=== PATIENT | male | born 1975 | race Two or more races ===

== ENCOUNTER 2016-06-21 22:29 | Emergency (ER) | payer BC, OTHER ==
--- NOTE | ~2016-06-21 | ER ---
PATIENT'S NAME: MELCHOR CRUZ [facility] AGE: 41 Y [address] ROOM: [place] [address] LOCATION: [facility] ADMIT DATE: 06/21/2016 ER/Outpatient Report DISCHARGE DATE: 06/22/2016 FAMILY PHYSICIAN: Physician, Unknown ATTENDING PHYSICIAN: John Blount Time of Arrival: Admission date and time documented on the medical record. Time of Evaluation: I saw the patient at 2250 hours. CHIEF COMPLAINT: Rash, left forearm. HISTORY OF PRESENT ILLNESS: This patient is a 41-year-old male, who comes in with a rash on his left forearm over the past 2 days. It is painful and pruritic. Denies any fever, chills, or sweats. No other complaints. The patient does have a history of HIV, tuberculosis, and depression. Apparently, had an anal fissure that ruptured several weeks ago. HOME MEDICATIONS: See attached medication list. ALLERGIES: CHLORAMPHENICOL. SOCIAL HISTORY: The patient smokes about 5 cigarettes a day. Occasional intake of alcohol. SIGNIFICANT PAST MEDICAL HISTORY: HIV since 2012; tobacco abuse; tuberculosis, questionable active versus nonactive; depression; herpes zoster; and anal fissure. OPERATIONS: None. REVIEW OF SYSTEMS: All systems reviewed by me are negative with the exception of those discussed in the history of present illness. PHYSICAL EXAMINATION: VITAL SIGNS: Temperature 97.9, pulse 67, respiratory rate 14, blood pressure 120/83, and O2 saturation on room air is 96%. HEAD: Normocephalic. EYES: Clear. EARS: Clear TMs bilaterally. PATIENT'S NAME: MELCHOR CRUZ [facility] AGE: 41 Y [address] ROOM: [place] [address] LOCATION: [facility] ADMIT DATE: 06/21/2016 ER/Outpatient Report DISCHARGE DATE: 06/22/2016 FAMILY PHYSICIAN: Physician, Unknown ATTENDING PHYSICIAN: John Blount NOSE AND THROAT: Clear. Mucous membranes moist. NECK: Negative. SPINE: Negative. LUNGS: Clear. No rales, rhonchi, or wheezes. HEART: Regular. Pulses are palpable. ABDOMEN: Soft, nontender. Good bowel tones. EXTREMITIES: No peripheral edema, cyanosis, or deformity. NEURO: Intact. SKIN: The patient has elevated rash approximately 4-5 x 2-3 cm, ventral aspect, mid left forearm. Some excoriated central lesions. No vesicles present. Slightly raised, slightly erythematous. LABORATORY DATA: White count is 8400, 54 segs, 35 lymphs, 8 monos, 3 eos, 1 baso; hemoglobin is 15.1 with hematocrit 42.8; platelet count is 228,000. Sedimentation rate was 4. Procalcitonin was 0.05. Lactate 1.8. CMS was normal except for a slightly low potassium at 3.5, low CO2 content of 21, CRP was normal at less than 0.29. IMPRESSION: 1. Rash, mid left forearm. Etiology undetermined. Most likely some type of viral exanthem, possibly herpetic. 2. Human immunodeficiency virus positive. 3. Tuberculosis, active versus nonactive. 4. Depression. PLAN: The patient was dismissed from the emergency department to observation. Activity as tolerated. Continue present home medications and care. Diet and fluids as tolerated. Zovirax 800 mg 5 times a day for 10 days. Follow up with personal physician in 10 to 14 days or sooner if needed. I did draw a CD4 count. This was sent out, results pending. MD HUMBERTO DIAZ/modl /[id number] d: 06/22/166 t: 06/22/163, OUTPATIENT REPORT
[2016-06-21 23:19] LABS: BASOPHIL # 0.1 K/uL (0.0-0.2); BASOPHIL % 0.8 %; EOSINOPHIL # 0.2 K/uL (0.0-0.5); EOSINOPHIL % 2.6 %; HEMATOCRIT 42.8 % (37.0-53.0); HEMOGLOBIN 15.1 g/dL (12.0-17.0); IMMATURE GRANULOCYTE % 0.5 %; LYMPHOCYTE # 2.9 K/uL (0.8-4.0); LYMPHOCYTE % 34.5 %; MCH 33.9 pg (27.0-34.0); MCHC 35.3 gm/dL (32.0-36.5); MONOCYTE # 0.7 K/uL (0.0-1.0); MONOCYTE % 7.9 %; MPV 8.7 fl (9.4-12.4); NEUTROPHIL # (ANC) 4.5 K/uL (1.4-9.0); NEUTROPHIL % 53.7 %; NRBC % 0 /100WBC (0-0.00); PLATELET COUNT 228 K/uL (150-450); RBC 4.46 M/uL (4.00-6.00); RDW-CV 11.9 % (11.9-14.6); WBC 8.4 K/uL (4.0-11.0)
[2016-06-21 23:41] LABS: ALBUMIN 4.1 gm/dL (3.5-5.0); ALK PHOS 54 IU/L (33-138); ALT 22 IU/L (12-78); ANION GAP 15.5 (10.0-19.0); AST 16 IU/L (10-40); BLOOD UREA NITROGEN 18 mg/dL (6-24); CALCIUM 8.6 mg/dL (8.5-10.5); CHLORIDE 109 mMol/L (96-110); CO2 21 mMol/L (22-32); CREATININE 0.9 mg/dL (0.6-1.3); ESTIMATED GFR (MDRD EQUATION) > 60; POTASSIUM 3.5 mMol/L (3.7-5.1); SODIUM 142 mMol/L (135-145); TOTAL BILIRUBIN 0.4 mg/dL (0.0-1.5); TOTAL PROTEIN 7.3 g/dL (6.0-8.4)
== END 2016-06-22 00:22 | disposition disaster alternative care site (69) ==
LOC: GMED 22:29
PROVIDERS: Emergency Medicine
DX: R21 Rash and other nonspecific skin eruption (principal); B20 Human immunodeficiency virus [HIV] disease; F32.9 Major depressive disorder, single episode, unspecified; F17.210 Nicotine dependence, cigarettes, uncomplicated; A15.9 Respiratory tuberculosis unspecified; Z88.8 Allergy status to other drugs, medicaments and biological substances

== ENCOUNTER → 2016-11-15 | Outpatient (CLI) | payer OTHER | LOC: LGSMG 12:43 | DX: B20 Human immunodeficiency virus [HIV] disease (principal); R05 Cough; Z86.11 Personal history of tuberculosis ==